=== PATIENT | female | born 1985 | race Caucasian/White ===

== ENCOUNTER 2017-10-17 11:01 | Emergency (ER) | payer MEDICAID ==
[2017-10-17] MEDS ORDERED: diphenhydrAMINE HCL 50 MG/ML VIAL IM ONE (11:18)
[2017-10-17] MEDS ORDERED: METHYLPREDNISOLONE SOD SUCC/PF 40 MG/ML VIAL IM ONE (11:18)
[2017-10-17] MEDS ORDERED: METHYLPREDNISOLONE SOD SUCC/PF 40 MG/ML VIAL ONE (11:25)
[2017-10-17] MEDS ORDERED: diphenhydrAMINE HCL 50 MG/ML VIAL ONE (11:25)
[2017-10-17 11:48] VITALS: BP 117/69
--- NOTE | 2017-10-17 11:50 | ERNOTE ---
Integumentary HPI - Narrative Date of Service: 10/17/17 - General Presenting Symptoms: rash Time Seen by Provider: 10/17/17 11:11 Source: patient Exam Limitations: no limitations - Immun/Allergies/Home Medications Immunizations: IMMUNIZATION HX Immunizations Up to Date Yes Allergies/Adverse Reactions: Allergies Allergy/AdvReac Type Severity Reaction Status Date / Time amoxicillin [Amoxicillin] Allergy Verified 10/17/17 11:08 Latex, Natural Rubber Allergy Verified 10/17/17 11:08 Home Medications: HOME MEDICATIONS Alprazolam [Alprazolam Odt] 2 mg PO TID 12/15/14 [Last Taken Unknown] Metoprolol Tartrate [Lopressor] 25 mg PO BID 12/15/14 [Last Taken Unknown] Montelukast Sodium [Singulair] 10 mg PO DAILY 12/15/14 [Last Taken Unknown] Prazosin HCl 5 mg PO BID 12/15/14 [Last Taken Unknown] Ranitidine HCl 150 mg PO BID 12/15/14 [Last Taken Unknown] Lurasidone HCl [Latuda] 60 mg PO DAILY 10/17/17 [Last Taken Unknown] - History of Present Illness Narrative: Pt. comes in with c/o rash on her back for two days. Pt. is currently on medications for bronchitis. Pt. states that she gets bronchitis once a year and she takes medrol and z-kaya every time without any problem or rash in the past. Pt. denies any alleviating factors or itching. Pt. denies any prehospital treatment for the rash. Location: Reports: torso - post Quality: Reports: other - none Severity: mild Exposure: Reports: no cause identified Modifying Factors - (Improves): Reports: nothing Modifying Factors - (Worsens): Reports: nothing Associated Symptoms: Reports: denies symptoms Prior Treatment: Reports: recently seen, treated by physician, currently on antibiotics. Denies: recently hospitalized Review of Systems - Review of Systems Constitutional: Present: no symptoms reported. Absent: fever, chills, weakness , fatigue, malaise EYE: Present: no symptoms reported ENT: Present: no symptoms reported Respiratory: Present: no symptoms reported. Absent: shortness of breath, cough , wheezing Cardiology: Present: no symptoms reported. Absent: chest pain, palpitations, edema Gastrointestinal/Abdominal: Present: no symptoms reported. Absent: nausea, vomiting, diarrhea, abdominal pain Genitourinary: Present: no symptoms reported. Absent: frequency, decreased urinary output Musculoskeletal: Present: no symptoms reported. Absent: back pain, neck pain, joint pain Skin: Present: rash, dryness. Absent: lesions, change in color, change in hair/ nails Neurological: Present: no symptoms reported. Absent: headache, dizziness/light- headedness, weakness, numbness, tingling All Other Systems: All systems neg except as marked - Patient's Past Medical History Patient History - Medical: Anxiety, Bipolar, Depression Patient History - Cardiac/Respiratory: No pertinent hx Patient History - Cancer: No Hx of Cancer Patient History - Surgical Procedures: Appendectomy Patient History - Other: None - Social History Living Situations: home Abuse History: No History of abuse Psych History: Hx of Anxiety, Hx of Depression, Hx of Bipolar Disorder Alcohol Use: none Drug Use: none - Immunizations Immunizations Up to Date: Yes Physical Exam - Physical Exam General Appearance: Present: wd/wn, alert, no apparent distress Head Exam: Present: normal inspection, no evidence of injury, no tenderness w palpation Eye Exam: Normal inspection: bilateral Ears, Nose, Throat: Present: normal ENT inspection, normal pharynx Neck: Present: normal inspection, nontender, supple, full range of motion. Absent: lymphadenopathy (R), lymphadenopathy (L) Respiratory: Present: no respiratory distress, normal breath sounds, no accessory muscle use, chest nontender, lungs clear Cardiovascular/Chest: Present: regular rate, rhythm, no murmur, normal peripheral pulses Back Exam: Present: normal range of motion, no CVA tenderness, no vertebral tenderness, other - macupapular rash all over back from shoulder blades to ishial spines and from r scapular boarder to L scapular boarder with dry flaky skin appearance Extremity Exam: Present: normal inspection Neurological Exam: Present: alert, oriented, normal mood/affect, no motor/ sensory deficits Skin Exam: Present: normal color, warm/dry, skin rash - see above ED Progress - Date and Time Seen: Date and Time: 10/17/17 11:36 Suspect that the urticaria is likely related to bronchitis as it could be mycoplasma or is allergic reaction to medication or is reaction to sweat that pt. states that she had earlier in the week. Pt. states that her bronchitis is improving and she took her last dose of zithromax today so encouraged pt. to not refill her zpak as she is improving and was told to refill by her PCP if not improving. Also as pt. is on zpak this will treat mycoplasma if this is the cause but the urticaria will improve with benadryl and the solumedrol that pt. is already taking. - Vital Signs Patient's Vital Signs:: I have reviewed the patient's vital signs. Vital Signs: Vital Signs 10/17/17 11:04 Temperature 36.9 C Pulse Rate 81 Respiratory 12 Rate Blood Pressure 114/72 O2 Sat by Pulse 100 Oximetry - Progress/Reassessment Chief Complaint: Rash Progress:: Unchanged Departure Clinical Impression: Urticaria - Departure Disposition: Home self-care Condition: Good Instructions: Pruritus Additional Instructions: Please apply lubriderm or vaseline intensive care lotion on back twice a day for moisture take your methylprednisolone tomorrow, take benedryl every 6 hours , and follow up with primary provider in 2-3 days if not improved. Referrals: Chrsiti Hayes MD [Primary Care Provider] -
== END 2017-10-17 11:45 | disposition home or self-care (01) ==
LOC: ER 11:01
DX: L50.9 Urticaria, unspecified; F31.9 Bipolar disorder, unspecified; F41.9 Anxiety disorder, unspecified